=== PATIENT | male | born 1965 | race Asian ===

== ENCOUNTER 2021-02-24 08:36 | Day surgery (SDC) | payer OTHER, SELFPAY ==
[~2021-02-24] VITALS: Ht 175.3 cm; Wt 72.6 kg
[2021-02-24] MEDS ORDERED: LIDOCAINE 2% 100 MG/5 ML UJET TP ONE ×2 (11:26→11:50)
== END 2021-02-24 12:50 | disposition home or self-care (01) ==
LOC: MMU 08:36 → MDS 08:36
PROVIDERS: ATTEND Internal Medicine Gastroenterology
DX: Z12.11 Encounter for screening for malignant neoplasm of colon (principal); D12.2 Benign neoplasm of ascending colon; D12.5 Benign neoplasm of sigmoid colon; I10 Essential (primary) hypertension; F17.210 Nicotine dependence, cigarettes, uncomplicated; Z79.899 Other long term (current) drug therapy; Z20.822 Contact with and (suspected) exposure to COVID-19
CPT/HCPCS: 45380; 45385; 88305; U0003

== ENCOUNTER 2022-01-19 09:34 | Day surgery (SDC) | payer OTHER ==
[~2022-01-19] VITALS: Ht 175.3 cm; Wt 72.6 kg
[2022-01-19] MEDS ORDERED: diphenhydrAMINE 50 MG/ML VIAL ONE (10:08)
[2022-01-19] MEDS ORDERED: LIDOCAINE 2% 100 MG/5 ML UJET TP ONE (10:09)
[2022-01-19] MEDS ORDERED: MIDAZOLAM 5 MG/5 ML VIAL ONE (10:09)
[2022-01-19] MEDS ORDERED: fentaNYL citrate 0.05 MG/ML VIAL ONE (10:09)
== END 2022-01-19 12:10 | disposition home or self-care (01) ==
LOC: MMU 09:34 → MOR 09:34
PROVIDERS: ATTEND Internal Medicine Gastroenterology
DX: Z09 Encounter for follow-up examination after completed treatment for conditions other than malignant neoplasm (principal); Z86.010 Personal history of colon polyps; I10 Essential (primary) hypertension; Z20.822 Contact with and (suspected) exposure to COVID-19; Z79.899 Other long term (current) drug therapy
CPT/HCPCS: 45378; 87426; J1200; J2250; J3010